=== PATIENT | male | born 1955 | race Caucasian/White ===

== ENCOUNTER 2023-12-10 07:53 | Outpatient (CLI) | payer MEDICARE | END 2023-12-10 07:54 | disposition home or self-care (01) | LOC: NM 07:53 | PROVIDERS: ATTEND Psychiatry & Neurology Neurology | DX: R26.2 Difficulty in walking, not elsewhere classified (principal); R29.818 Other symptoms and signs involving the nervous system; Z74.09 Other reduced mobility; Z78.9 Other specified health status | CPT/HCPCS: 78803; A9584 ×2 ==